=== PATIENT | male | born 1975 | race Caucasian/White ===

== ENCOUNTER 2019-06-17 07:12 | Emergency (ER) | payer BC ==
[~2019-06-17] VITALS: Ht 172.7 cm; Wt 113.4 kg
[2019-06-17] MEDS ORDERED: PREDNISONE 20 M20 M1 PO (07:37)
[2019-06-17] MEDS ORDERED: ULTRAM 50MG TAB50 MG PO (07:37)
[2019-06-17] MEDS ORDERED: BACTRIM DS TAB1 EAC1 PO (07:37)
[2019-06-17] MEDS ORDERED: KEFLEX500 M1 PO (07:37)
[2019-06-17 07:44] VITALS: BP 140/81
== END 2019-06-17 07:44 | disposition home or self-care (01) ==
LOC: M.ERS 07:12
DX: L03.113 Cellulitis of right upper limb (principal)

== ENCOUNTER 2020-05-21 14:01 | Emergency (ER) | payer OTHER ==
[~2020-05-21] VITALS: Ht 172.7 cm; Wt 113.4 kg
[~2020-05-21 14:01] MED LIST: BACTRIM DS TAB1 EAC1 PO; KEFLEX500 M1 PO; PREDNISONE 20 M20 M1 PO; ULTRAM 50MG TAB50 MG PO
[2020-05-21] MEDS ORDERED: MEDROLDOSEPACK PO (16:23)
[2020-05-21] MEDS ORDERED: NAPROSYN500 MG PO (16:23)
[2020-05-21] MEDS ORDERED: NORCO 5-325 TA1 EAC2 PO (16:23)
[2020-05-21 16:32] VITALS: BP 132/85
== END 2020-05-21 16:34 | disposition home or self-care (01) ==
LOC: M.ERS 14:01
DX: M50.823 Other cervical disc disorders at C6-C7 level (principal); M25.512 Pain in left shoulder; F17.210 Nicotine dependence, cigarettes, uncomplicated